=== PATIENT | female | born 1950 | race Caucasian/White ===

== ENCOUNTER 2017-01-14 14:30 | Emergency (ER) | payer OTHER ==
[2017-01-14 15:08] LABS: Urine Color Yellow
[2017-01-14 15:11] LABS: Urine Appearance Bloody; Urine Bilirubin Negative (NEGATIVE)
[2017-01-14 15:12] LABS: Urine Blood 250 /ul (NEGATIVE); Urine Ketone 5 mg/dL (NEGATIVE); Urine Nitrite Negative (NEGATIVE); Urine Protein 100 mg/dL (NEGATIVE); Urine RBC >50 /hpf (0-5); Urine Specific Gravity 1.025 SP.GR. (1.005-1.010); Urine Urobilinogen Normal (NORMAL)
[2017-01-14 15:13] LABS: Urine Bacteria 1+
--- NOTE | 2017-01-14 15:15 | ERNOTE ---
ER Female HPI Date of Service: 01/14/17 Stated Complaint: UTI Presenting Symptoms: dysuria Time Seen by Provider: 01/14/17 15:15 Source: patient, RN notes reviewed Exam Limitations: no limitations Immunizations: IMMUNIZATION HX Immunizations Up to Date Yes History of Influenza Vaccine No Allergies/Adverse Reactions: Allergies Penicillins Adverse Reaction (Mild, Verified 01/31/16 07:37) RASH Home Medications: HOME MEDICATIONS Cymbalta 01/14/17 [Last Taken Unknown] Phenazopyridine HCl 200 mg PO Q8H PRN #6 tablet 01/14/17 [Last Taken Unknown] Sulfamethoxazole/Trimethoprim [Bactrim Ds] 1 tab PO BID #14 tab 01/14/17 [Last Taken Unknown] - History of Present Illness Narrative: 66 year old female presents with dysuria, hematuria and urinary frequency that began this morning. She denies fevers or chills but does report having some nausea. She has not had a UTI for 6 or 7 years. Date (Duration): 01/14/17 Prior Abdominal Problems: Present: similar symptoms Prior Treatment: Absent: recently seen, currently on antibiotics Review of Systems - Review of Systems Constitutional: Absent: recent illness, fever, chills EYE: Present: no symptoms reported ENT: Present: no symptoms reported Respiratory: Present: no symptoms reported Cardiology: Present: no symptoms reported Gastrointestinal/Abdominal: Present: nausea. Absent: vomiting, abdominal pain Genitourinary: Present: frequency, dysuria, hematuria. Absent: decreased urinary output Musculoskeletal: Absent: back pain, muscle pain Skin: Absent: rash, lesions Neurological: Absent: headache, dizziness/light-headedness Endocrine: Present: no symptoms reported Hematologic/Lymphatic: Present: no symptoms reported Psych: Present: no symptoms reported - Patient's Past Medical History Patient History - Medical: UTI'S Patient History - Cardiac/Respiratory: No pertinent hx Patient History - Cancer: No Hx of Cancer Patient History - Surgical Procedures: Back Surgery, Tubal Ligation, T & A Patient History - Other: None - Social History Living Situations: home Psych History: No pertinent hx Smoking Status: Current every day smoker Have you smoked in the past 12 months: Yes Alcohol Use: none Drug Use: none - Immunizations Immunizations Up to Date: Yes History of Influenza Vaccine: No Physical Exam - Physical Exam General Appearance: Present: wd/wn, alert, no apparent distress Respiratory: Present: no respiratory distress, normal breath sounds, no accessory muscle use, lungs clear Cardiovascular/Chest: Present: regular rate, rhythm, no murmur Back Exam: Present: normal inspection, no CVA tenderness Extremity Exam: Present: normal inspection, normal range of motion, no edema Neurological Exam: Present: alert, oriented, normal mood/affect, no motor/ sensory deficits Skin Exam: Present: normal color, warm/dry ED Progress - Results and Orders Patient's Lab Results:: I have reviewed the patient's lab results. - Vital Signs Patient's Vital Signs:: I have reviewed the patient's vital signs. Vital Signs: Vital Signs 01/14/17 14:43 Temperature 36.8 C Pulse Rate 85 Respiratory 16 Rate Blood Pressure 139/70 O2 Sat by Pulse 95 Oximetry - Progress/Reassessment Chief Complaint: Genitourinary Problem Progress:: Unchanged Departure Clinical Impression: Urinary tract infection Qualifiers: Urinary tract infection type: acute cystitis Hematuria presence: with hematuria Qualified Code(s): N30.01 - Acute cystitis with hematuria - Departure Disposition: Home self-care Condition: Good Instructions: Urinary Tract Infection, Adult, [id number] Referrals: Kristin Martinez MD [Primary Care Provider] - Prescriptions: Phenazopyridine HCl 200 mg PO Q8H PRN #6 tablet PRN Reason: Pain Sulfamethoxazole/Trimethoprim [Bactrim Ds] 1 tab PO BID #14 tab
[2017-01-14] MEDS ORDERED: PHENAZOPYRIDINE HCL 100 MG TABLET PO ONE (15:21)
[2017-01-14] MEDS ORDERED: SULFAMETHOXAZOLE/TRIMETHOPRIM 1 TAB TABLET PO ONE (15:21)
[2017-01-14] MEDS ORDERED: SULFAMETHOXAZOLE/TRIMETHOPRIM 1 TAB TABLET ONE (15:24)
[2017-01-14] MEDS ORDERED: PHENAZOPYRIDINE HCL 100 MG TABLET ONE (15:25)
[2017-01-14 15:35] VITALS: BP 138/70
== END 2017-01-14 15:39 | disposition home or self-care (01) ==
LOC: ER 14:30
DX: N30.01 Acute cystitis with hematuria (principal); Z87.440 Personal history of urinary (tract) infections; F17.200 Nicotine dependence, unspecified, uncomplicated